=== PATIENT | male | born 1960 | race Caucasian/White ===

== ENCOUNTER 2016-12-24 23:05 | Emergency (ER) | payer MEDICAID ==
[~2016-12-24] VITALS: Ht 170.2 cm; Wt 74.8 kg
[2016-12-24 23:30] VITALS: BP 114/73
--- NOTE | 2016-12-25 01:21 | NUR ---
Patient to OF.
--- NOTE | 2016-12-25 01:25 | NUR ---
Dr. Kramer evaluating patient.
[2016-12-25] MEDS ORDERED: MORPHINE SULFATE 10 MG/ML SYR IM ONE (01:30)
--- NOTE | 2016-12-25 01:30 | NUR ---
56Y/M PT. PRESENTS TO ED WITH C/O LOWER BACK PAIN X 5 DAYS. PATIENT STATES HAVING PAIN FOR 5 DAYS. AAO X4, AMBULATE WITH W/C AT THIS TIME DUE TO PAIN. RESPIRATIONS ROOM SIR EVEN AND UNLABORED. SKIN WARM AND DRY. C/O LOWER BACK PAIN 03/22. VSS, ER MADE AWARE OF PT. STATUS.
--- NOTE | 2016-12-25 02:12 | NUR ---
Patient discharged with v/s stable. Written and verbal after care instructions given and explained. Patient alert, oriented and verbalized understanding of instructions. Carried with to car. All questions addressed prior to discharge. ID band removed. Patient advised to follow up with PMD. Rx of SOMA 350 MG, NNAPROSYN 500 MG given. Patient educated on indication of medication including possible reaction and side effects. Opportunity to ask questions provided and answered.
[2016-12-25 02:44] VITALS: BP 118/76
== END 2016-12-25 02:12 | disposition home or self-care (01) ==
LOC: MED 23:05
DX: M54.30 Sciatica, unspecified side (principal)
CPT/HCPCS: 96372; 99283; J2270